=== PATIENT | male | born 1990 | race Two or more races ===

== ENCOUNTER 2023-10-17 18:26 | Emergency (ER) | payer OTHER ==
[~2023-10-17] VITALS: Ht 170.2 cm; Wt 61.7 kg
[2023-10-17] MEDS ORDERED: CEFTRIAXONE SODIUM 1,000 MG VIAL IV STA (20:13)
[2023-10-17] MEDS ORDERED: KETOROLAC TROMETHAMINE 15 MG VIAL IV STA (20:14)
[2023-10-17] MEDS ORDERED: CEFTRIAXONE SODIUM 1,000 MG VIAL ONE (20:40)
[2023-10-17] MEDS ORDERED: KETOROLAC TROMETHAMINE 30 MG VIAL ONE (20:40)
[2023-10-17 21:21] LABS: HEMATOCRIT 42.8 % (39.0-48.0); MEAN CELL VOLUME 88.7 fL (80.0-100.00); MEAN CORPUSCULAR HEMOGLOBIN 31.1 pg (27.00-32.0); MEAN CORPUSCULAR HGB CONC 35.1 g/dl (32.0-36.0); PLATELET COUNT 233 K/uL (150-450); RED BLOOD COUNT 4.82 M/uL (4.00-6.00); RED CELL DISTRIBUTION WIDTH 12.8 % (11.5-14.5)
== END 2023-10-17 22:08 | disposition home or self-care (01) ==
LOC: ER 18:27
PROVIDERS: General Practice
DX: M71.8 Other specified bursopathies (principal); Z88.0 Allergy status to penicillin